=== PATIENT | female | born 1990 | race Caucasian/White ===

== ENCOUNTER 2020-03-31 08:16 | Emergency (ER) | payer SELFPAY ==
[~2020-03-31] VITALS: Ht 157.5 cm; Wt 63.0 kg
[2020-03-31 08:24] VITALS: Ht 157.5 cm; Wt 63.0 kg
[2020-03-31 09:12] VITALS: BP 111/67
== END 2020-03-31 09:08 | disposition home or self-care (01) ==
LOC: ED 08:16
DX: S61.253A Open bite of left middle finger without damage to nail, initial encounter (principal); W54.0XXA Bitten by dog, initial encounter; Y93.89 Activity, other specified; Y92.89 Other specified places as the place of occurrence of the external cause; Y99.8 Other external cause status
CPT/HCPCS: 90715; Q0092